=== PATIENT | male | born 1960 | race African-American/Black ===

== ENCOUNTER 2016-09-25 20:23 | Emergency (ER) | payer MEDICAID ==
[~2016-09-25] VITALS: Ht 167.6 cm; Wt 35.4 kg
[2016-09-25 20:47] VITALS: BP 111/66
--- NOTE | 2016-09-25 21:34 | NUR ---
TO ER BED 6
--- NOTE | 2016-09-25 22:15 | NUR ---
Patient being evaluated by physician at bedside WITH ORDERS AND CARRIED OUT.
[2016-09-25] MEDS ORDERED: HYDROcodone/APAP 5/325 MG 1 TAB TAB PO ONE (22:20)
[2016-09-25] MEDS ORDERED: KETOROLAC 30 MG/ML VIAL IM ONE (22:20)
--- NOTE | 2016-09-25 23:00 | NUR ---
55 Y/O M W/C/O RT FOOT PAIN R/T INJURY X 1 DAY. PT STATES A TOOL DROPPED ON IT YESTERDAY AND HAS HAD PAIN SINCE THEN. NO S/S OF DISTRESS NOTED AT THE MOMENT. ER AWARED.
[2016-09-25 23:32] VITALS: BP 111/66
--- NOTE | 2016-09-25 23:32 | NUR ---
Patient discharged with v/s stable. Written and verbal after care instructions given and explained. Patient alert, oriented and verbalized understanding of instructions. Ambulatory with steady gait. All questions addressed prior to discharge. ID band removed. Patient advised to follow up with PMD IN 2-3 DAYS OR RETURN TO ER IF CONDITION GETS WORSE. Rx of TYLENOL WITH CODEINE, AND NAPROSYN given. Patient educated on indication of medication including possible reaction and side effects. Opportunity to ask questions provided and answered.
== END 2016-09-25 23:32 | disposition home or self-care (01) ==
LOC: MED 20:23
PROC: 3E033GC Introduction of Other Therapeutic Substance into Peripheral Vein, Percutaneous Approach (ICD-10-PCS; principal; 2016-09-25)
DX: S90.31XA Contusion of right foot, initial encounter (principal); I10 Essential (primary) hypertension; E11.9 Type 2 diabetes mellitus without complications; W31.9XXA Contact with unspecified machinery, initial encounter; Y92.89 Other specified places as the place of occurrence of the external cause
CPT/HCPCS: 73630; 96372; 99284; J1885; Q0092

== ENCOUNTER 2022-11-03 10:02 | Emergency (ER) | payer MEDICAID ==
[~2022-11-03] VITALS: Ht 170.2 cm; Wt 59.0 kg
[2022-11-03 10:24] VITALS: BP 111/74
--- NOTE | 2022-11-03 10:32 | NUR ---
to bed 9 via W/C, no acute distress. awake and alert
[2022-11-03] MEDS ORDERED: KETOROLAC 30 MG/ML VIAL IM ONE (11:00)
[2022-11-03] MEDS ORDERED: ONDANSETRON 4 MG ODT PO ONE (11:00)
--- NOTE | 2022-11-03 11:04 | NUR ---
PT C/O LT LOWER BACK PAIN RADIATING TO LT LEG X 1DY. SAFETY MAINTAINED.
[2022-11-03] MEDS ORDERED: HYDROcodone/APAP 7.5/325 MG 1 TAB PO ONE (11:10)
[2022-11-03 11:39] LABS: APPEARANCE,URINE CLEAR (CLEAR); BILIRUBIN,URINE NEGATIVE (NEGATIVE); BLOOD, URINE NEGATIVE (NEGATIVE); COLOR,URINE YELLOW (YELLOW); LEUKOCYTE ESTERASE ,URINE NEGATIVE (NEGATIVE); NITRITE, URINE NEGATIVE (NEGATIVE); UGLUCOSE NEGATIVE (NEGATIVE)
[2022-11-03] MEDS ORDERED: ACET-8905 PO (12:09)
[2022-11-03] MEDS ORDERED: ONDA-188 SL (12:09)
[2022-11-03] MEDS ORDERED: LID5T TP (12:09)
[2022-11-03 12:37] VITALS: BP 102/66
--- NOTE | 2022-11-03 12:37 | NUR ---
The patient's care was reviewed and supervised by INGRID FENG RN.
--- NOTE | 2022-11-03 12:39 | NUR ---
Patient discharged with v/s stable. Written and verba after care LUMBAR STRAIN instructions given and explained. Patient verbalized understanding. Wheel Chair Assisted with steady gait. All questions addressed prior to discharge. Advised to follow up with PMD. PT. STATES "FEELING BETTER". STABLE FOR D/C
== END 2022-11-03 12:37 | disposition home or self-care (01) ==
LOC: MED 10:02
DX: S39.012A Strain of muscle, fascia and tendon of lower back, initial encounter (principal); M54.10 Radiculopathy, site unspecified; J45.909 Unspecified asthma, uncomplicated; E11.9 Type 2 diabetes mellitus without complications; I10 Essential (primary) hypertension; Z79.899 Other long term (current) drug therapy; Z79.891 Long term (current) use of opiate analgesic; Z88.8 Allergy status to other drugs, medicaments and biological substances; X58.XXXA Exposure to other specified factors, initial encounter; Y92.89 Other specified places as the place of occurrence of the external cause; Y93.89 Activity, other specified; Y99.8 Other external cause status
CPT/HCPCS: 72100; 81003; 96372; 99284; J1885; Q0162

== ENCOUNTER 2022-11-29 22:29 | Emergency (ER) | payer MEDICAID ==
[~2022-11-29] VITALS: Ht 170.2 cm; Wt 70.8 kg
[~2022-11-29 22:29] MED LIST: ACET-8905 PO; LID5T TP; ONDA-188 SL
[2022-11-29 22:55] VITALS: BP 107/67
--- NOTE | 2022-11-30 00:21 | NUR ---
pt to bed 08 via w/c
--- NOTE | 2022-11-30 00:46 | NUR ---
DR GALVEZ AT [address] FOR EXAM
[2022-11-30] MEDS ORDERED: MORPHINE SULFATE 4 MG/ML SYR IM ONE (00:55)
[2022-11-30] MEDS ORDERED: KETOROLAC 30 MG/ML VIAL IM ONE (00:55)
[2022-11-30] MEDS ORDERED: LIDOCAINE 5% 1 EA PATCH TP SCH (00:55)
--- NOTE | 2022-11-30 01:00 | NUR ---
C/O lower back pain x 3 days. Patient had lower back pain, radiate to right leg , groin area for 3 days. PMHx: Asthma, DM (no medication), HTN
[2022-11-30 01:03] LABS: APPEARANCE,URINE CLEAR (CLEAR); BILIRUBIN,URINE NEGATIVE (NEGATIVE); BLOOD, URINE NEGATIVE (NEGATIVE); COLOR,URINE YELLOW (YELLOW); LEUKOCYTE ESTERASE ,URINE NEGATIVE (NEGATIVE); NITRITE, URINE NEGATIVE (NEGATIVE); UGLUCOSE NEGATIVE (NEGATIVE)
--- NOTE | 2022-11-30 01:17 | NUR ---
PT TAKEN TO CT
--- NOTE | 2022-11-30 01:28 | NUR ---
PT RETURN FROM CT
[2022-11-30] MEDS ORDERED: CYCL-711 PO (03:12)
[2022-11-30] MEDS ORDERED: ACET-9535 PO (03:12)
[2022-11-30] MEDS ORDERED: DICL100G5 TP (03:12)
[2022-11-30] MEDS ORDERED: IBUP-2213 PO (03:12)
[2022-11-30 03:34] VITALS: BP 107/67
--- NOTE | 2022-11-30 03:34 | NUR ---
Patient discharged with v/s stable. Written and verbal after care instructions given and explained. Patient alert, oriented and verbalized understanding of instructions. Ambulatory with steady gait. All questions addressed prior to discharge. ID band removed. Patient advised to follow up with PMD. Rx of HYDROCODON-ACETAMINOPHIN, FLEXERIL, DICLOFENAC SODIUM, IBUPROFEN given. Patient educated on indication of medication including possible reaction and side effects. Opportunity to ask questions provided and answered.
== END 2022-11-30 03:34 | disposition home or self-care (01) ==
LOC: MED 22:29
DX: M54.41 Lumbago with sciatica, right side (principal); J45.909 Unspecified asthma, uncomplicated; E11.9 Type 2 diabetes mellitus without complications; I10 Essential (primary) hypertension; Z79.899 Other long term (current) drug therapy; Z88.8 Allergy status to other drugs, medicaments and biological substances
CPT/HCPCS: 74176; 81003; 96372; 99285; J1885; J2270

== ENCOUNTER 2023-05-04 09:43 | Emergency (ER) | payer MEDICAID ==
[~2023-05-04] VITALS: Ht 170.2 cm; Wt 72.6 kg
[~2023-05-04 09:43] MED LIST changes: +ACET-9535 PO; +CYCL-711 PO; +DICL100G32 TP; +IBUP-2213 PO
[2023-05-04 09:50] VITALS: BP 132/81; PULSE 60; RESP 16; TEMP 97.8; O2SAT 100
[2023-05-04] MEDS ORDERED: POLY17PD72 PO ×2 (10:27→11:21)
[2023-05-04 10:55] LABS: EOSINOPHILS # (AUTO) 0.2 K/uL (0-0.4); EOSINOPHILS % (AUTO) 4.1 % (0.0-4.0); HEMATOCRIT 45.6 % (36-52); HEMOGLOBIN 15.4 g/dL (12.0-18.0); LYMPHOCYTES # (AUTO) 1.5 K/uL (2.0-11.5); LYMPHOCYTES % (AUTO) 32.3 % (20.5-51.1); MEAN CORPUSCULAR HEMOGLOBIN 32 pg (27-31); MEAN CORPUSCULAR HGB CONC 34 g/dL (33-37); MONOCYTES # (AUTO) 0.6 K/uL (0.8-1.0); MONOCYTES % (AUTO) 13.1 % (1.7-9.3); NEUTROPHILS # (AUTO) 2.3 K/uL (1.8-7.7); NEUTROPHILS % (AUTO) 49.5 % (42.2-75.2); PLATELET COUNT (AUTO) 192 K/uL (140-450); RED BLOOD CELL COUNT(AUTO) 4.85 MIL/uL (4.20-6.10); RED CELL DISTRIBUTION WIDTH 16.1 % (11.6-13.7); WHITE BLOOD COUNT (AUTO) 4.6 K/uL (4.8-10.8)
[2023-05-04 11:03] LABS: ANION GAP 9.7 (8-16); CALCIUM 8.5 mg/dL (8.5-10.1); CARBON DIOXIDE 30.8 mmol/L (21-32); CREATININE 1.1 mg/dL (0.6-1.3); POTASSIUM 4.5 mmol/L (3.5-5.1)
[2023-05-04 11:27] VITALS: BP 132/81; PULSE 60; RESP 16; TEMP 97.8; O2SAT 100
== END 2023-05-04 11:27 | disposition home or self-care (01) ==
LOC: MED 09:43
DX: K92.1 Melena (principal); J45.909 Unspecified asthma, uncomplicated; I10 Essential (primary) hypertension; E11.9 Type 2 diabetes mellitus without complications; Z79.4 Long term (current) use of insulin; Z79.899 Other long term (current) drug therapy
CPT/HCPCS: 36415; 80048; 85025; 99283

== ENCOUNTER 2023-11-21 11:41 | Emergency (ER) | payer MEDICAID ==
[~2023-11-21] VITALS: Ht 170.2 cm; Wt 75.0 kg
[~2023-11-21 11:41] MED LIST changes: +POLY17PD72 PO
[2023-11-21 11:57] VITALS: BP 158/103; PULSE 88; RESP 20; TEMP 97.8; O2SAT 97
[2023-11-21] MEDS: IBUPROFEN 600 MG TAB PO ONE (13:17)
[2023-11-21] MEDS: LIDOCAINE MPF 1% 10 MG/ML VIAL INJ ONE (13:17)
[2023-11-21] MEDS: HYDROcodone/APAP 5/325 MG 1 TAB TAB PO ONE (13:24)
[2023-11-21] MEDS: BACITRACIN OINT 500 UNITS/GM PKT TP ONE (14:19)
== END 2023-11-21 14:21 | disposition home or self-care (01) ==
LOC: MED 11:41
DX: S61.212A Laceration without foreign body of right middle finger without damage to nail, initial encounter (principal); S60.041A Contusion of right ring finger without damage to nail, initial encounter; J45.909 Unspecified asthma, uncomplicated; E11.9 Type 2 diabetes mellitus without complications; I10 Essential (primary) hypertension; Z79.1 Long term (current) use of non-steroidal anti-inflammatories (NSAID); Z79.899 Other long term (current) drug therapy; Z88.8 Allergy status to other drugs, medicaments and biological substances; W23.0XXA Caught, crushed, jammed, or pinched between moving objects, initial encounter; Y93.89 Activity, other specified; Y92.89 Other specified places as the place of occurrence of the external cause; Y99.8 Other external cause status
CPT/HCPCS: 11740; 12001; 73140; 90471; 90715; 99284; J2001

== ENCOUNTER 2023-11-29 14:24 | Emergency (ER) | payer MEDICAID ==
[~2023-11-29] VITALS: Ht 167.6 cm; Wt 68.0 kg
[2023-11-29 14:40] VITALS: BP 143/95; PULSE 84; RESP 18; TEMP 97.5; O2SAT 84
[2023-11-29] MEDS ORDERED: NEOM28OI TP (15:17)
[2023-11-29] MEDS ORDERED: IBUP-2213 PO (15:17)
== END 2023-11-29 15:20 | disposition home or self-care (01) ==
LOC: MED 14:24
DX: S61.212A Laceration without foreign body of right middle finger without damage to nail, initial encounter (principal); J45.909 Unspecified asthma, uncomplicated; E11.9 Type 2 diabetes mellitus without complications; I10 Essential (primary) hypertension; Z79.1 Long term (current) use of non-steroidal anti-inflammatories (NSAID); Z79.899 Other long term (current) drug therapy; Z79.2 Long term (current) use of antibiotics; Z88.8 Allergy status to other drugs, medicaments and biological substances; X58.XXXA Exposure to other specified factors, initial encounter; Y93.89 Activity, other specified; Y92.89 Other specified places as the place of occurrence of the external cause; Y99.8 Other external cause status
CPT/HCPCS: 99282; 99283